=== PATIENT | male | born 1960 | race Caucasian/White ===

== ENCOUNTER 2022-11-24 08:15 | Outpatient (CLI) | payer OTHER, SELFPAY | END 2022-11-24 08:16 | disposition home or self-care (01) | LOC: NFLDREF 11-25 22:22 | PROVIDERS: PCP Internal Medicine; Referring Provider Internal Medicine; Visit Provider Internal Medicine | DX: Z00.00 Encounter for general adult medical examination without abnormal findings (principal); E78.5 Hyperlipidemia, unspecified; Z12.5 Encounter for screening for malignant neoplasm of prostate | CPT/HCPCS: 80053; 80061; 84153 ==

== ENCOUNTER 2024-01-20 07:50 | Outpatient (CLI) | payer OTHER, SELFPAY | END 2024-01-20 07:51 | disposition home or self-care (01) | LOC: NFLDREF 02-05 02:36 | PROVIDERS: PCP Internal Medicine; Referring Provider Internal Medicine; Visit Provider Internal Medicine | DX: E78.5 Hyperlipidemia, unspecified (principal); N52.9 Male erectile dysfunction, unspecified; Z13.228 Encounter for screening for other metabolic disorders; Z12.5 Encounter for screening for malignant neoplasm of prostate | CPT/HCPCS: 80053; 80061; G0103 ==

== ENCOUNTER 2024-02-21 13:30 | Outpatient (CLI) | payer OTHER, SELFPAY ==
--- NOTE | 2024-02-21 13:45 | CRLHL7_ITS ---
For Patients: As a result of the 21st Century Cures Act, medical imaging exams and procedure reports are released immediately into your electronic medical record. You may view this report before your referring provider. If you have questions, please contact your health care provider. CLINICAL INDICATION: Right knee pain. COMPARISON STUDIES: Radiographs 02/09/2024. TECHNICAL: Noncontrast MRI of the right knee. 1.5 chan MRI scanner. Axial, sagittal and coronal T1, PD, PD FS and T2 FS images. FINDINGS: MEDIAL COMPARTMENT: Medial Meniscus: There is complex tearing of the undersurface of the posterior horn-body junction region of the medial meniscus extending to involve the free edge of the meniscus. Area of meniscal tearing spans an approximately 17 millimeter longitudinal extent of the meniscus and is noted on coronal STIR images number 21 through 23 of series 8 for example. There is mild medial extrusion of the medial meniscal body anterior to the area of tearing. Articular Cartilage: Small areas of high-grade chondromalacia are noted involving the central and lateral aspects of the medial femoral condyle (grade 3). These are noted on coronal STIR images 19 and 21 of series 8 for example. Medial tibial plateau articular cartilage is maintained. LATERAL COMPARTMENT: Lateral Meniscus: Intact. Articular Cartilage: Maintained. PATELLOFEMORAL COMPARTMENT: Articular Cartilage: Subchondral bone marrow edema underlying the central trochlea implies overlying grade 4 chondromalacia. Mild patellar chondromalacia (grade 2). LIGAMENTS: Anterior Cruciate Ligament: Intact. Posterior Cruciate Ligament: Intact. MEDIAL COLLATERAL LIGAMENT AND POSTEROMEDIAL CORNER COMPLEX: Medial Collateral Ligament: Periligamentous edema about the MCL which appears otherwise intact. Medial Head of the Gastrocnemius and Semimembranosus Tendons: Normal. LATERAL COLLATERAL LIGAMENT COMPLEX AND POSTEROLATERAL CORNER COMPLEX: Fibular Collateral Ligament: Normal. Distal Biceps Femoris Tendon Complex: Normal. Iliotibial Band: Normal. Popliteus Tendon: Normal. Posterolateral Corner Capsule: Normal. EXTENSOR MECHANISM: Distal Quadriceps Tendon: Normal. Patellar Tendon: Normal. Medial Patellar Retinaculum and Medial Patellofemoral Ligament: Normal. Lateral Patellar Retinaculum: Normal. Normal patellar alignment. No patella jai. Normal trochlear depth. Normal lateral trochlear inclination. JOINT SPACE AND CAPSULE: Small joint effusion. No joint bodies. BONES AND SOFT TISSUES: There is no acute fracture or avascular necrosis.No significant popliteal cyst. IMPRESSION: 1. Complex tearing of the posterior horn-body junction region of the medial meniscus. 2. 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 3. Patellofemoral compartment chondromalacia including high-grade chondromalacia within the central trochlea. 4. Small joint effusion. 5. No fracture. 6. Periligamentous edema about an otherwise intact MCL. Dictated by Raul Briggs MD @ 02/22/2024 1:05:13 PM (Electronically Signed)
== END 2024-02-21 13:31 | disposition home or self-care (01) ==
LOC: MRI 13:31
PROVIDERS: PCP Internal Medicine; Visit Provider Internal Medicine
DX: M25.561 Pain in right knee (principal); S83.231A Complex tear of medial meniscus, current injury, right knee, initial encounter; M94.261 Chondromalacia, right knee; M22.41 Chondromalacia patellae, right knee; M25.461 Effusion, right knee; S89.90XA Unspecified injury of unspecified lower leg, initial encounter
CPT/HCPCS: 73721

== ENCOUNTER 2024-03-28 09:06 | Day surgery (SDC) | payer OTHER, SELFPAY ==
[2024-03-28] VITALS (12 sets, daily range): BP systolic 111–151; BP diastolic 76–97; PULSE 57–66; RESP 16; TEMP 35.8–36.2; O2SAT 96–99; BMI 25.2
[2024-03-28] MEDS: SODIUM CHLORIDE 0.9 % (FLUSH) 10 ML SYRINGE IVF (09:23)
[2024-03-28] MEDS: LACTATED RINGERS 1000 ML 1,000 ML 100 ML IV (09:23)
[2024-03-28] MEDS: CEFAZOLIN 2 GM INJ IVP (11:07)
[2024-03-28] MEDS: BUPIVACAINE 0.25% 30 ML INJECTION (11:30)
--- NOTE | 2024-03-28 11:36 | P.ORPRC_ITS ---
Procedure Note Date of procedure: 03/28/24 Procedure: PREOPERATIVE DIAGNOSIS: Right knee medial meniscus tear POSTOPERATIVE DIAGNOSIS: Right knee medial meniscus tear NAME OF OPERATION: Right knee arthroscopic partial medial meniscectomy SURGEON: Abraham Rudolph MD [employer] DEVELOPMENT SPECIALIST: Leandra Espinosa PA-C ANESTHESIA: Spinal ESTIMATED BLOOD LOSS: 2 mL COMPLICATIONS: None SPECIMENS: None DRAINS: None PREOPERATIVE ANTIBIOTICS: Ancef 2 gram INDICATIONS: The patient is a 63-year-old with a history of right knee medial pain. MRI scan is consistent with a medial meniscus tear. Despite appropriate nonoperative management, including activity modification, antiinflammatories, [id number] pain medication, bracing, physical therapy, and injections they continue to have pain and disability. Operative intervention was offered. The risks, benefits and expected outcomes were discussed in detail. These included but were not limited to: Infection, bleeding, injury to blood vessel or nerve, venous thromboembolism. All questions were answered to their satisfaction. PROCEDURE: Spinal anesthesia was administered. The patient was placed supine on the operating room table. The right lower extremity was prepped and draped in the usual sterile fashion. The limb was exsanguinated with the Per bandage. The pneumatic tourniquet was not utilized. A standard anterolateral portal was established. The arthroscope was introduced. The working portal was established anteromedially. Diagnostic arthroscopy was performed with findings as follows: The suprapatellar pouch is normal. Articular surface on the patella shows focal 1/2 change proximally. Articular surface on the trochlea is normal. The medial gutter is normal. The medial compartment shows diffuse grade 3 change on the medial femoral condyle, grade 2 change on the medial tibial plateau. The medial meniscus has an undersurface horizontal cleavage tear. The root is intact. The notch shows the ACL to be intact. The lateral compartment shows normal articular cartilage on the lateral femoral condyle and lateral tibial plateau. The lateral meniscus is normal. The lateral gutter is normal. The posterior horn of the medial meniscus was debrided to a stable base using a combination of baskets and danilo through both portals. Unstable chondral flaps on the medial femoral condyle, were debrided with the shaver through both portals, taken to a stable base. Arthroscopic instruments were removed, the portal sites were Steri-Stripped closed, the knee was infiltrated with 30 mL of 0.25% Marcaine without epinephrine. A dry dressing was applied, the tourniquet was released. Sponge and needle counts were correct x 2. The patient tolerated the procedure well. There were no apparent complications. They were carefully transferred to the hospital bed and taken to the postanesthesia care unit in satisfactory condition. PLAN: The patient will be discharged to home. They may weightbear as tolerates. Range of motion will be unrestricted. They will follow up in the office next week for a wound check.
--- NOTE | 2024-03-28 11:46 | W.ANESCHARGE ---
Anesthesia Charges Start Date/Time Anesthesia Start Date: 03/28/24 Anesthesia Start Time: 10:46 Stop Date/Time Anesthesia Stop Date: 03/28/24 Anesthesia Stop Time: 11:45
== END 2024-03-28 13:36 | disposition home or self-care (01) ==
LOC: OR 09:07
PROVIDERS: PCP Internal Medicine; Visit Provider Orthopaedic Surgery
PROC: (CPT 29870; principal; 2024-03-28 11:15)
DX: S83.241A Other tear of medial meniscus, current injury, right knee, initial encounter (principal)
CPT/HCPCS: 29881; 01400; J0665; J0690; J1100; J1885; J2250; J2405; J2704; J3010; J7120

== ENCOUNTER 2025-01-31 07:52 | Outpatient (CLI) | payer OTHER, SELFPAY | END 2025-01-31 07:53 | disposition home or self-care (01) | LOC: NFLDREF 02-06 07:13 | PROVIDERS: PCP Internal Medicine; Referring Provider Internal Medicine; Visit Provider Internal Medicine | DX: E78.5 Hyperlipidemia, unspecified (principal); Z12.5 Encounter for screening for malignant neoplasm of prostate | CPT/HCPCS: 80053; 80061; G0103 ==

== ENCOUNTER 2025-03-12 07:18 | Emergency (ER) | payer OTHER, SELFPAY ==
[2025-03-12 07:23] VITALS: BP 152/88; PULSE 74; RESP 16; TEMP 36.2; O2SAT 97; BMI 24.4
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
== END 2025-03-12 08:47 | disposition home or self-care (01) ==
LOC: ED 08:38
PROVIDERS: Emergency Provider Family Medicine; PCP Internal Medicine
DX: S09.93XA Unspecified injury of face, initial encounter (principal); Y04.2XXA Assault by strike against or bumped into by another person, initial encounter
CPT/HCPCS: 99283